=== PATIENT | male | born 1950 | race Asian ===

== ENCOUNTER 2023-12-14 08:28 | Emergency (ER) | payer OTHER, MEDICAID ==
[~2023-12-14] VITALS: Ht 165.1 cm; Wt 78.0 kg
[2023-12-14] MEDS ORDERED: CARB0.5D28 OP (11:05)
[2023-12-14 11:36] VITALS: BP 120/76; PULSE 85; RESP 19; TEMP 98.8; O2SAT 99
== END 2023-12-14 12:12 | disposition home or self-care (01) ==
LOC: ER 08:28
DX: H53.8 Other visual disturbances (principal)